=== PATIENT | male | born 1960 | race Caucasian/White ===

== ENCOUNTER 2020-03-08 06:39 | Day surgery (SDC) | payer MEDICAID ==
[~2020-03-08] VITALS: Ht 170.2 cm; Wt 95.0 kg
[2020-03-08] VITALS (15 sets, daily range): BP systolic 99–132; BP diastolic 49–82
[~2020-03-08 06:39] MED LIST: IBUP-1984 PO; LEVO150T8 PO; MULT-1085 PO; cefazolin/dext.iso 2gm/50ml 50 ML IV ONE; famotidine 20mg tablet PO ONE; ringers solution, lacted 1,000 ML IV SCH; scopolamine 1.5mg patch.TD72 TD ONE
[2020-03-08 07:33] LABS: BASOPHILS # (AUTO) 0.1 X10'3 (0-0.2); BASOPHILS % (AUTO) 1.1 % (0-1); EOSINOPHILS # (AUTO) 0.3 X10'3 (0-0.9); EOSINOPHILS % (AUTO) 3.7 % (0-6); LYMPHOCYTES # (AUTO) 2.6 X10'3 (1.1-4.8); LYMPHOCYTES % (AUTO) 37.1 % (21-51); MEAN CORPUSCULAR HEMOGLOBIN 31.2 PG (27.0-31.0); MEAN CORPUSCULAR VOLUME 91.8 FL (78-98); MEAN PLATELET VOLUME 7.8 FL (7.4-10.4); MONOCYTES # (AUTO) 0.5 X10'3 (0-0.9); MONOCYTES % (AUTO) 7.2 % (2-12); NEUTROPHILS # (AUTO) 3.6 X10'3 (1.8-7.7); NEUTROPHILS % (AUTO) 50.9 % (42-75); PRE OP HEMATOCRIT 44.3 % (42.0-52.0); PRE OP HEMOGLOBIN 15.1 g/dL (14.0-17.9); PRE OP PLATELET COUNT 185 X10'3 (140-440); RED BLOOD COUNT 4.83 X10'6 (4.70-6.10); RED CELL DISTRIBUTION WIDTH 15.6 % (11.5-14.5)
[2020-03-08 07:49] LABS: ALBUMIN 4.2 G/DL (3.4-5.0); ALBUMIN/GLOBULIN RATIO 1.2 (1.1-1.5); ALKALINE PHOSPHATASE 71 IU/L (46-116); BLOOD UREA NITROGEN 24 MG/DL (7-18); BUN/CREATININE RATIO 21.2 (5.4-32.0); CALCIUM 9.1 MG/DL (8.5-10.1); CHLORIDE 102 MMOL/L (99-107); CREATININE 1.13 MG/DL (0.60-1.10); PRE OP ALT 42 U/L (30-65); PRE OP ANION GAP 6 (8-16); PRE OP AST 13 U/L (10-37); PRE OP BILIRUB, TOTAL 0.3 MG/DL (0.0-1.0); PRE OP GLUCOSE 105 MG/DL (70-104); PRE OP POTASSIUM 4.2 MMOL/L (3.4-5.1); PRE OP SODIUM 136 MMOL/L (135-145); TOTAL CARBON DIOXIDE 28.3 MMOL/L (24-32); TOTAL PROTEIN 7.6 G/DL (6.4-8.2); eGFR 66 ML/MIN
[2020-03-08] MEDS ORDERED: ringers solution, lacted 1,000 ML IV SCH (08:41)
[2020-03-08] MEDS ORDERED: hydrALAZINE 20mg/ml inj. IV PRN (08:45)
[2020-03-08] MEDS ORDERED: morphine 4 MG/ML inj SYRINge IV PRN (08:45)
[2020-03-08] MEDS ORDERED: acetaminophen 1,000mg/100ml IV 100 ML IV PRN (08:45)
[2020-03-08] MEDS ORDERED: meperidine/PF 25mg/ml syringe IV PRN ×2 (08:45)
[2020-03-08] MEDS ORDERED: morphine 2 MG/ML inj. syringe IV PRN (08:45)
[2020-03-08] MEDS ORDERED: proCHLORperazine 10 MG/2 ml inj IV PRN (08:45)
[2020-03-08] MEDS ORDERED: labetalol 20mg/4ml (5mg/ml) syringe IV PRN (08:45)
[2020-03-08] MEDS ORDERED: ondansetron/PF 4mg/2ml inj IV PRN (08:45)
[2020-03-08] MEDS ORDERED: BUPIVAcaine/PF 2.5 mg/ml (0.25%) 30ml vial ONE (09:23)
[2020-03-08] MEDS ORDERED: sevoflurane 250ml liquid IH ONE (09:28)
[2020-03-08] MEDS ORDERED: fentaNYL/PF 50MCG/1 ML 2ML syringe ONE (09:38)
[2020-03-08] MEDS ORDERED: midazolam 2 mg/2 ml injection ONE (09:41)
[2020-03-08] MEDS ORDERED: LIDOcaine 2% (20mg/ml) 5ml vial ONE (09:50)
[2020-03-08] MEDS ORDERED: propofol inj 20 ML IV ONE (09:50)
[2020-03-08] MEDS ORDERED: ePHEDrine 50MG/ML INJ. ONE (09:56)
[2020-03-08] MEDS ORDERED: ceFAZolin 1000mg inj ONE (10:54)
[2020-03-08] MEDS ORDERED: dexamethasone sod phosphate 4mg/ml inj. ONE (11:08)
[2020-03-08] MEDS ORDERED: ondansetron/PF 4mg/2ml inj ONE (11:08)
--- NOTE | 2020-03-08 11:17 | NUR ---
10L MASK ON WITH 100% SATURATIONS. Received from OR via JAMES , accompanied by Anesthesiologist CLARISA and report given by Anesthesiolgist. 20G PIV RUNNING LR AT 100. ISLAND DRESSING TO RIGHT GROIN DRESSING IS CLEAN AND DRY. DENIES PAIN AT THIS TIME Addendum: 03/08/20 at 1153 by Fahad Ferrara RN, RN Amended: Links added.
[2020-03-08] MEDS: meperidine/PF 25mg/ml syringe IV PRN ×2 (11:55→12:50)
--- NOTE | 2020-03-08 13:27 | NUR ---
PATIENT AND FAMILY AND THEY HAVE VERBALIZED UNDERSTANDING, OPPORTUNITY TO ASK QUESTIONS GIVEN AND PATIENT COMFORTABLE WITH DC. IV TAKEN OUT WITHOUT COMPLICATION. PATIENT HAS MET ALL DC CRITERIA FOR DC HOME. I HAVE REVIEWED D/C INSTRUCTIONS WITH OUT VIA WHEELCHAIR WHERE PATIENT WAS TAKEN HOME WITH ALL BELONGINGS. FAMILY GAVE PATIENT TRANSPORT HOME. TAKEN OUT FOLLOWING AMBULATION AND VOIDING INDEPENDENTLY. PAIN AT A TOLERABLE LEVEL. SISTER IN LAW DROVE PATIENT HOME. Addendum: 03/08/20 at 1410 by Fahad Valderrama - BUDDY GOODWIN Amended: Links added.
== END 2020-03-08 13:27 | disposition home or self-care (01) ==
LOC: PAS 06:39
PROVIDERS: ATTEND Surgery
DX: K40.91 Unilateral inguinal hernia, without obstruction or gangrene, recurrent (principal); R10.31 Right lower quadrant pain; F17.210 Nicotine dependence, cigarettes, uncomplicated; N50.89 Other specified disorders of the male genital organs; M19.90 Unspecified osteoarthritis, unspecified site; Z79.899 Other long term (current) drug therapy
CPT/HCPCS: 36415; 49520; 80053; 85025; 93005; A6402; C1781; J0131; J0690; J1100; J2001; J2175; J2250; J2270; J2405; J2704; J3010; J3490; A4215; A4618; A6258; J7120